=== PATIENT | male | born 1960 | race Caucasian/White ===

== ENCOUNTER 2021-04-01 13:31 | Emergency (ER) | payer OTHER, MEDICARE ==
[~2021-04-01] VITALS: Ht 193 cm; Wt 113.4 kg
[2021-04-01 13:39] VITALS: BP_SYST 165
--- NOTE | 2021-04-01 13:49 | NUR ---
PT COMES TO ER WITH C/O ANTERIOR CHEST WALL PAIN X 2 WEEKS, PROGRESSIVELY RADITING TO CENTRAL ANTERIOR CHEST WALL WITH MILD CHRONIC SOB. DENIES ANY FEVERS/CHILLS. SKIN W/D/I. RESP EVEN AND UNLABORED, ON RA @98% REPORTS CHEST PAIN IS INTERMITTENT AND EXACERBATED WITH EXTRENUOUS PHYSICAL ACTIVITY. SHARP IN SENSATION 4/10. DENIES ANY MEDICAL HISTORY, DOES NOT TKAE ANY MEDS EXCEPT OME OCCASIONAL ANTIVERT WHEN NEEDED FOR VERTIGO. DENIES N/V/D. DR NO INFORMED, EKG IN PROGRESS. WILL CONT TO MONITOR.
--- NOTE | 2021-04-01 13:51 | NUR ---
DR SPARKS IN ROOM FOR EXAM
[2021-04-01 14:13] LABS: BASOPHILS % (AUTO) 0.5 % (0.0-2.0); EOSINOPHILS % (AUTO) 0.4 % (0.0-4.0); HEMATOCRIT 52.7 % (36-54); HEMOGLOBIN 17.9 g/dL (14.0-18.0); LYMPHOCYTES # (AUTO) 1.7 K/uL (1.0-5.5); MEAN CORPUSCULAR HEMOGLOBIN 32 pg (27-31); MEAN CORPUSCULAR HGB CONC 34 % (32-36); MEAN CORPUSCULAR VOLUME 94 fL (79.0-98.0); MONOCYTES # (AUTO) 0.3 K/uL (0.0-1.0); MONOCYTES % (AUTO) 5.4 % (1.7-9.3); NEUTROPHILS # (AUTO) 3.7 K/uL (1.8-7.7); NEUTROPHILS % (AUTO) 63.7 % (40.0-70.0); PLATELET COUNT (AUTO) 152 K/uL (130-430); RED BLOOD CELL COUNT(AUTO) 5.64 MIL/uL (4.2-6.2); RED CELL DISTRIBUTION WIDTH 13.2 % (9.0-15.0); WHITE BLOOD COUNT (AUTO) 5.7 K/uL (4.8-10.8)
[2021-04-01 14:22] LABS: CALCIUM 9.6 mg/dL (8.4-11.0); CREATININE 1.2 mg/dL (0.55-1.30); POTASSIUM 3.8 mmol/L (3.5-5.1)
[2021-04-01 14:28] LABS: ALBUMIN 3.9 g/dL (3.4-4.8); TOTAL BILIRUBIN 1.1 mg/dL (0.0-1.0)
--- NOTE | 2021-04-01 14:45 | NUR ---
Ambulated to bathroom. No distress noted.
--- NOTE | 2021-04-01 15:00 | NUR ---
NO ACUTE CHANGES IN CONDITION, PT SITTING UP IN BED, IN NAD. VSS.
[2021-04-01] MEDS ORDERED: IOHEXOL 350 mgI/mL, 150 ML INFUS..BTL IV ONE (15:22)
--- NOTE | 2021-04-01 15:35 | NUR ---
PT TO CT SCAN VIA W/C
--- NOTE | 2021-04-01 16:49 | NUR ---
PT'S AT BEDSIDE, WAITING FOR DISPO.
[2021-04-01] MEDS ORDERED: DOXYCYCLINE HYCLATE 100 MG CAPSULE PO ONE (17:00)
[2021-04-01] MEDS ORDERED: DOXY100C5 PO (17:01)
[2021-04-01 17:23] VITALS: BP_SYST 144
--- NOTE | 2021-04-01 17:23 | NUR ---
Patient given written and verbal discharge instructions and verbalizes understanding. ER MD discussed with patient the results and treatment provided. Patient in stable condition. ID arm band removed. Rx of DOXYCYCLINE given. Patient educated on pain management and to follow up with PMD. Pain Scale . Opportunity for questions provided and answered. Medication side effect fact sheet provided.
== END 2021-04-01 17:23 | disposition home or self-care (01) ==
LOC: SED 13:31
DX: J18.9 Pneumonia, unspecified organism (principal); R07.89 Other chest pain; R03.0 Elevated blood-pressure reading, without diagnosis of hypertension; Z88.1 Allergy status to other antibiotic agents
CPT/HCPCS: 36415; 71045; 71275; 76376; 80053; 83880; 84484; 85025; 93005; 99285; Q9967